=== PATIENT | male | born 1995 | race Caucasian/White ===

== ENCOUNTER 2016-11-10 22:27 | Emergency (ER) | payer BC, OTHER ==
[2016-11-10] MEDS ORDERED: SULFAMET/TMP DS PREPACK#2 BTL TAKEHOME ONE (22:52)
[2016-11-10] MEDS ORDERED: CEPHALEXIN 500MG PREPACK#4 BTL TAKEHOME ONE (22:52)
[2016-11-10] MEDS ORDERED: SULFAMETHOX/TMP 800/160 MG 1 TAB PO ONE (22:53)
[2016-11-10] MEDS ORDERED: IBUPROFEN 200 MG TAB PO ONE (22:53)
[2016-11-10] MEDS ORDERED: CEPHALEXIN 500 MG CAP PO ONE (22:53)
--- NOTE | 2016-11-10 22:55 | EDPHY ---
H & P Time Seen by Provider: 11/10/16 22:36 HPI/ROS: CHIEF COMPLAINT: "I think I might have a hemorrhoid" in x3 days HISTORY OF PRESENT ILLNESS: 21-year-old immunocompetent male complaining of tenderness in the perianal region for the past 3 days. No pain with defecation. Positive pain with wiping. No blood or pus in stool. No abdominal pain. No fever no chills PHYSICAL EXAM (Prior to examination, patient consented to physical exam, hands were washed and my usual and customary physical exam procedures followed) 1) GENERAL: Well-developed, well-nourished, alert and oriented. Appears to be in no acute distress. 2) HEAD: Normocephalic 3) HEENT: sclera anicteric 4) LUNGS: Breathing comfortably. [5) : Patient has an area of induration and fluctuance at the 7 o'clock position measuring 1 cm x 1 cm. No hemorrhoid. No perineal pain. Smoking Status: Heavy smoker Constitutional: Initial Vital Signs Temperature (C) 36.9 C 11/10/16 22:31 Heart Rate 99 11/10/16 22:31 Respiratory Rate 20 11/10/16 22:31 Blood Pressure 123/70 H 11/10/16 22:31 O2 Sat (%) 95 11/10/16 22:31 O2 Delivery Mode Room Air Allergies/Adverse Reactions: No Known Allergies Allergy (Unverified 11/10/16 22:30) Home Medications: Medication Instructions Recorded Cephalexin [Keflex] 500 mg PO TID 10 Days 11/10/16 Ibuprofen [Motrin (*)] 800 mg PO Q6 #15 tab 11/10/16 Sulfamethox/Tmp 800/160 mg 1 tab PO BID@1000,2200 10 Days 11/10/16 [Bactrim Ds] MDM/Departure - MDM Procedures: Procedure: Abscess drainage. The patient's abscess was located on the perianal region . discussed indications risks benefits with the patient Of medication procedure. I obtained verbal consent from the patient to drain the abscess who was informed about the possibility of bleeding and pain. The abscess was incised with a # 11 Scalpel and a mild amount of purulent drainage was expressed. I irrigated the wound . The patient tolerated the procedure well. The procedure was performed by myself. ED Course/Re-evaluation: Patient has been informed that he may necessitate further incision and drainage. Doubt perirectal abscess. I do not think that imaging currently indicated. He is started on Keflex and Bactrim. Wound has been cultured. Recommend 2 day recheck with on-call surgeon Dr. Balta Fallon . To return to ER should develop new or worsening symptoms - Depart Disposition: Home, Routine, Self-Care Clinical Impression: Perianal abscess Condition: Good Instructions: Anorectal Abscess and Anal Fistula (ED) Additional Instructions: Return to the ER if you develop fever, chills, nausea, vomiting, painful defecation or any other symptoms that concern you. Prescriptions: Cephalexin [Keflex] 500 mg PO TID 10 Days Ibuprofen [Motrin (*)] 800 mg PO Q6 #15 tab Sulfamethox/Tmp 800/160 mg [Bactrim Ds] 1 tab PO BID@1000,2200 10 Days Referrals: Balta Fallon MD [Medical Doctor] - 11/12/16
[2016-11-11 00:01] VITALS: BP 128/76; PULSE 68; RESP 16; TEMP 98.6; O2SAT 98
== END 2016-11-11 | disposition home or self-care (01) ==
PROC: 0D9QXZZ Drainage of Anus, External Approach (ICD-10-PCS; principal; 2016-11-10)
DX: K61.0 Anal abscess (principal); F17.200 Nicotine dependence, unspecified, uncomplicated

== ENCOUNTER 2018-11-05 11:20 | Emergency (ER) | payer BC ==
[2018-11-05] MEDS ORDERED: KETAMINE 200 MG/20 ML VIAL ONE (13:03)
--- NOTE | 2018-11-05 13:24 | EDPHY ---
H & P Time Seen by Provider: 11/05/18 12:40 HPI/ROS: HPI Rectal pain. 23-year-old male by private vehicle. This patient has a history of a reoccurring perianal abscess. He reports that he had it drained in the emergency department about a year and half ago. He reports that it flared up about 6 months ago in drain spontaneously. He presents to the emergency department today complaining of increased perianal pain typical of the pain associated with this abscess, onset about 2 days ago but significantly worse today. No fever. ROS: Constitutional: No fever, no chills. No weakness. Respiratory: No cough. No shortness of breath. Cardiac: No chest pain, no palpitations. Gastrointestinal: No abdominal pain, no vomiting, no diarrhea. Genitourinary: No hematuria. No dysuria or increased frequency with urination. As above. Musculoskeletal: No back pain. No neck pain. No myalgias or arthralgias. Skin: No rashes. Neurological: No headache. No focal weakness or altered sensation. Past medical history: Perianal abscess as above. Social history: Nonsmoker. Here by himself. No alcohol. Physical Exam: General Appearance: Alert, no distress. This patient is responding to questions appropriately and in full sentences. This patient appears well- hydrated and well-nourished. Eyes: Pupils equal and round no pallor or injection. No lid edema, erythema or injection. Gastrointestinal: Abdomen is soft and nontender, no masses, bowel sounds normal. No focal tenderness at McBurney's point. No Reddy sign. Rectal exam: Significant for a perianal abscess, not involving the anal sphincter, at the 4 o'clock position. It is fluctuant. It does not appear to track inside the anus on palpation of the area. There is no associated erythema , edema or induration. Neurological: Motor sensory function is grossly intact. Cranial nerves are normal. Gait is normal. Skin: Warm and dry, no rashes. Musculoskeletal: Neck is supple and nontender. Extremities are symmetrical. All joints range without pain or impingement. Psychiatric: No agitation. No depression. Database: EKG: Imaging: Procedures: Procedure: Procedural sedation. Indication: Drainage of perianal abscess. A pre-sedation evaluation was completed on the patient just prior to the procedure. Patient is an appropriate candidate for procedural sedation with ASA class 1E. Mallampati class I. Patient assessed as 332. The risks of the sedation were discussed including but not limited to dysrhythmia, need for airway intervention or general anesthesia, disability, ; and verbal consent obtained. A timeout was observed and patient's identity confirmed. The patient was sedated with 50 mg of IV ketamine slow push. The patient was monitored with continuous pulse oximetry, capnography, and school lunch monitor. There were no complications and no significant hypoxemia. I remained at the bedside for the sedation. The total time I spent in the procedural sedation was 15 min. Procedure: Abscess drainage. The patient's abscess was located on the perianal area, not involving the sphincter, 4:00 position. I obtained verbal consent from the patient to drain the abscess who was informed about the possibility of bleeding and pain. The abscess was incised with 11. Blade and a copious amount of purulent drainage was expressed. I irrigated the wound. The patient tolerated the procedure well. The procedure was performed by myself. G stain and culture sent. Emergency department course: Triage vital signs reviewed. The patient is moderately hypertensive. Vital signs are otherwise normal. The patient is afebrile. 2:00 p.m., postprocedure the patient has been given 2 [place] tablets and 600 mg of ibuprofen for pain. 2:15 p.m., patient re-evaluated, his pain is controlled and tolerable at this time. I do not feel he needs antibiotics currently. He does feel comfortable going home and will have a friend take him home. I will prescribe him [place] for pain, stool softeners and high-dose ibuprofen. I have discussed follow-up with General surgery or his primary care physician in 2-3 days for re- evaluation. He is in agreement with this plan. Return to emergency department precautions were reviewed with him. All of his questions were answered. He was discharged from the emergency department in good condition. Differential Diagnosis: The differential diagnosis on this patient includes but is not limited to perianal abscess. Perirectal abscess, perennial abscess, cellulitis unlikely. This represents a partial list of diagnoses considered. These considerations are based on history, physical exam, past history, reassessment and diagnostic testing. Smoking Status: Former smoker Constitutional: Initial Vital Signs Temperature (C) 37.3 C 11/05/18 11:45 Heart Rate 75 11/05/18 11:45 Respiratory Rate 16 03/17/19 11:45 Blood Pressure 157/107 H 11/05/18 11:45 O2 Sat (%) 97 11/05/18 11:45 O2 Delivery Mode [Post Room Air Procedure 1st] O2 Delivery Mode [Procedural Non-Rebreather Mask 1st] O2 Delivery Mode [.Immediate Non-Rebreather Mask Pre-Procedure] O2 Delivery Mode Room Air O2 (L/minute) [Procedural 1st] 15 O2 (L/minute) [.Immediate Pre- 15 Procedure] Allergies/Adverse Reactions: No Known Allergies Allergy (Unverified 11/05/18 11:45) Home Medications: Medication Instructions Recorded Docusate Sodium [Colace 100 MG (*)] 100 mg PO TID #20 cap 11/05/18 Hydrocodone/APAP 5/325 [[place] 1 - 2 tab PO Q4-6PRN PRN #14 tab 11/05/18 5/325 (*)] Medical Decision Making - Data Points Medications Given: Discontinued Medications Hydrocodone Bitart/Acetaminophen ([place] 5/325mg Prepack#6) 1 btl TAKEHOME EDNOW ONE Stop: 11/05/18 14:00 Last Admin: 11/05/18 14:02 Dose: 1 btl Hydrocodone Bitart/Acetaminophen ([place] 5/325) 2 tab PO EDNOW ONE Stop: 11/05/18 14:00 Last Admin: 11/05/18 14:02 Dose: 2 tab Ketamine HCl (Ketamine) 50 mg IVP EDNOW ONE Stop: 11/05/18 13:40 Last Admin: 11/05/18 13:42 Dose: 50 mg Departure - Departure Disposition: Home, Routine, Self-Care Clinical Impression: Perianal abscess Condition: Good Instructions: Anorectal Abscess and Anal Fistula (ED) Additional Instructions: Read and follow provided instructions. Follow-up with your primary care physician or General surgery, Dr. Dodd or 1 of his partners in 2-3 days for re-evaluation as discussed. Ibuprofen dosin mg every 6 hours with meals for the next 3 days only. Take only as needed for pain. Narcotic pain medication: 1-2 every 4-6 hours as needed for pain. You can take a maximum of 2 every 4 hr. I have prescribed you a stool softener. You should also talked to the pharmacist about Metamucil or psyllium husk fiber to softener bowel movements. Shower and go to the bath normally and keep the area clean. Return to the emergency department for worsening or uncontrolled pain, fever, bleeding or other serious concerns. Referrals: NONE *PRIMARY CARE P,. [Primary Care Provider] - As per Instructions Claude Dodd MD [Medical Doctor] - As per Instructions Prescriptions: Docusate Sodium [Colace 100 MG (*)] 100 mg PO TID #20 cap Hydrocodone/APAP 5/325 [[place] 5/325 (*)] 1 - 2 tab PO Q4-6PRN PRN #14 tab PRN Reason: Pain, Moderate
[2018-11-05] MEDS ORDERED: KETAMINE 500 MG/10 ML VIAL IVP ONE (13:39)
[2018-11-05] MEDS ORDERED: HYDROCODONE/APAP 5/325 TAB PO ONE (13:59)
[2018-11-05] MEDS ORDERED: HYDROCOD/APAP 5/325 PREPACK#6 BTL TAKEHOME ONE (13:59)
[2018-11-05 14:44] VITALS: BP 117/71
== END 2018-11-05 14:42 | disposition home or self-care (01) ==
PROC: 0D9QXZZ Drainage of Anus, External Approach (ICD-10-PCS; principal; 2018-11-05)
DX: K61.0 Anal abscess (principal)